=== PATIENT | male | born 1965 | race Caucasian/White ===

== ENCOUNTER 2023-04-02 15:54 | Inpatient (IN) | payer OTHER ==
[2023-04-02] VITALS (8 sets, daily range): BP systolic 143–179; BP diastolic 97–143; TEMP 98.3; O2SAT 97–98
[~2023-04-02] VITALS: Ht 182.9 cm; Wt 104.3 kg
[2023-04-02] MEDS ORDERED: AMIODARONE 150 MG/3 ML VIAL IV ONE ×2 (16:30→16:36)
[2023-04-02] MEDS: AMIODARONE 150 MG in IV D5W 100 ML IV ONE (16:56)
[2023-04-02 17:22] LABS: BASOPHILS % (AUTO) 0.2 % (0.0-2.0); EOSINOPHILS # (AUTO) 0.1 K/uL (0.0-0.7); EOSINOPHILS % (AUTO) 1.5 % (0.0-6.0); HEMATOCRIT 48 % (39-51); HEMOGLOBIN 15.9 g/dL (13.5-17.5); LYMPHOCYTES # (AUTO) 1.3 K/uL (0.8-4.8); LYMPHOCYTES % (AUTO) 18.3 % (20.0-44.0); MEAN CORPUSCULAR HEMOGLOBIN 28 PG (26.0-33.0); MEAN CORPUSCULAR HGB CONC 34 g/dl (31.0-36.0); MEAN CORPUSCULAR VOLUME 83 fL (80-96); MONOCYTES # (AUTO) 0.5 K/uL (0.1-1.30); MONOCYTES % (AUTO) 7.6 % (2.0-12.0); NEUTROPHILS % (AUTO) 72.4 % (43.0-81.0); PLATELET COUNT (AUTO) 216 K/uL (150-450); RED BLOOD CELL COUNT(AUTO) 5.73 MIL/uL (4.5-6.0); RED CELL DISTRIBUTION WIDTH 14.7 % (11.5-15.0); WHITE BLOOD COUNT (AUTO) 6.9 K/uL (4.3-11.0)
[2023-04-02] MEDS ORDERED: SACU1TAB4 PO (17:24)
[2023-04-02] MEDS ORDERED: APIX5TAB PO (17:24)
[2023-04-02] MEDS ORDERED: ATOR40TA PO (17:24)
[2023-04-02] MEDS ORDERED: FURO-145 PO (17:24)
[2023-04-02] MEDS ORDERED: DAPA10TA PO (17:24)
[2023-04-02] MEDS ORDERED: CARV25TA2 PO (17:24)
[2023-04-02] MEDS ORDERED: SPIR25TA6 PO (17:24)
[2023-04-02 17:35] LABS: CALCIUM, SERUM 8.8 mg/dL (8.5-10.1); CARBON DIOXIDE 24 mmol/L (21-32); CHLORIDE 105 mmol/L (98-107); CREATININE 1.3 mg/dL (0.6-1.3); GLUCOSE 90 mg/dL (74-106); POTASSIUM 3.7 mmol/L (3.5-5.1); SODIUM SERUM 140 mmol/L (136-145); UREA NITROGEN, BLOOD 14 mg/dL (7-18)
[2023-04-02] MEDS: AMIODARONE 450 MG in IV D5W 241 ML IV PRN ×2 (17:47→22:03)
[2023-04-02 17:48] LABS: ALANINE AMINOTRANSFERASE 21 U/L (12-78); ALBUMIN 3.9 g/dL (3.4-5.0); ALKALINE PHOSPHATASE 78 U/L (46-116); ASPARTATE AMINOTRANSFERASE 14 U/L (15-37); BILIRUBIN,DIRECT 0.3 mg/dL (0.0-0.2); BILIRUBIN,TOTAL 1.7 mg/dL (0.2-1.0); NT-PRO BNP 4345 pg/mL (0-125); TOTAL PROTEIN, SERUM 7.2 g/dL (6.4-8.2)
[2023-04-02] MEDS ORDERED: ALPRAZOLAM 0.5 MG TABLET PO PRN (19:00)
[2023-04-02] MEDS ORDERED: ONDANSETRON HCL/PF 4 MG/2 ML VIAL IVP PRN (19:00)
[2023-04-02] MEDS ORDERED: MAGNESIUM HYDROXIDE 30 ML UDC PO PRN (19:00)
[2023-04-02] MEDS ORDERED: Z GUARD REMEDY 4 OZ OINT TP PRN (19:00)
[2023-04-02] MEDS ORDERED: MORPHINE SULFATE INJ 2 MG/ML DISP.SYRIN IV PRN (19:00)
[2023-04-02] MEDS ORDERED: ACETAMINOPHEN 325 MG TABLET PO PRN (19:00)
[2023-04-02] MEDS ORDERED: MAG HYDROX/AL HYDROX/SIMETH 30 ML UDC PO PRN (19:00)
[2023-04-02] MEDS: AMIODARONE 150 MG/3 ML VIAL IV ONE ×2 (22:06→22:09)
[2023-04-03] VITALS (56 sets, daily range): BP systolic 124–198; BP diastolic 62–133; TEMP 97.8–98.3; O2SAT 96–100
[2023-04-03 00:11] LABS: CREATININE 1.1 mg/dL (0.6-1.3); POTASSIUM 3.8 mmol/L (3.5-5.1)
[2023-04-03 00:14] LABS: MAGNESIUM 2.2 mg/dL (1.8-2.4); PHOSPHORUS 4.5 mg/dL (2.5-4.9)
[2023-04-03 04:24] LABS: BASOPHILS % (AUTO) 0.2 % (0.0-2.0); EOSINOPHILS # (AUTO) 0.1 K/uL (0.0-0.7); EOSINOPHILS % (AUTO) 1.4 % (0.0-6.0); HEMATOCRIT 45 % (39-51); HEMOGLOBIN 14.8 g/dL (13.5-17.5); LYMPHOCYTES # (AUTO) 1.5 K/uL (0.8-4.8); LYMPHOCYTES % (AUTO) 19.8 % (20.0-44.0); MEAN CORPUSCULAR HEMOGLOBIN 28 PG (26.0-33.0); MEAN CORPUSCULAR HGB CONC 33 g/dl (31.0-36.0); MEAN CORPUSCULAR VOLUME 83 fL (80-96); MONOCYTES # (AUTO) 0.6 K/uL (0.1-1.30); MONOCYTES % (AUTO) 7.2 % (2.0-12.0); NEUTROPHILS # (AUTO) 5.6 K/uL (1.8-8.9); NEUTROPHILS % (AUTO) 71.4 % (43.0-81.0); PLATELET COUNT (AUTO) 181 K/uL (150-450); RED BLOOD CELL COUNT(AUTO) 5.34 MIL/uL (4.5-6.0); RED CELL DISTRIBUTION WIDTH 15.2 % (11.5-15.0); WHITE BLOOD COUNT (AUTO) 7.8 K/uL (4.3-11.0)
[2023-04-03 04:42] LABS: CALCIUM, SERUM 8.7 mg/dL (8.5-10.1); CREATININE 1.2 mg/dL (0.6-1.3); MAGNESIUM 2.2 mg/dL (1.8-2.4); PHOSPHORUS 4.7 mg/dL (2.5-4.9); POTASSIUM 3.5 mmol/L (3.5-5.1)
[2023-04-03 04:49] LABS: THYROID STIMULATING HORMONE 2.261 uIU/mL (0.358-3.74)
[2023-04-03] MEDS: hydrALAZINE HCL IV 20 MG VIAL IV PRN (05:18)
[2023-04-03 05:21] LABS: INR 1.25 (0.91-1.10); PROTHROMBIN TIME 13.1 SECS (9.2-11.1)
[2023-04-03] MEDS ORDERED: ANESTHESIA TRAY IN PYXIS 1 EA TRAY MC ONE (06:52)
[2023-04-03] MEDS ORDERED: diphenhydrAMINE HCL 50 MG/ML VIAL IV PRN (07:30)
[2023-04-03] MEDS: diphenhydrAMINE HCL 50 MG/ML VIAL IV ONE (08:13)
[2023-04-03] MEDS: PANTOPRAZOLE 40 MG TABLET.DR PO SCH (08:13)
[2023-04-03] MEDS: SACUBITRIL/VALSARTAN 1 EACH TABLET PO SCH (08:20)
[2023-04-03] MEDS: ATORVASTATIN 40 MG TABLET PO SCH (08:20)
[2023-04-03] MEDS: SPIRONOLACTONE 25 MG TABLET PO SCH (08:20)
[2023-04-03] MEDS: DAPAGLIFLOZIN PROPANEDIOL 5 MG TABLET PO SCH (08:20)
[2023-04-03] MEDS: CARVEDILOL 12.5 MG TABLET PO SCH (08:21)
[2023-04-03] MEDS: FUROSEMIDE 20 MG TABLET PO SCH (09:46)
[2023-04-03] MEDS: APIXABAN 5 MG TABLET PO SCH (09:48)
[2023-04-03] MEDS ORDERED: CT SWABBABLE VALVE TRANS SET 1 EA INFUS.SET MC ONE (10:24)
[2023-04-03] MEDS ORDERED: IV NS 0.9% 250 ML IV ONE (10:24)
[2023-04-03] MEDS ORDERED: IOHEXOL-350 100 ML VIAL IV ONE (10:24)
[2023-04-03] MEDS ORDERED: NITROGLYCERIN 0.4 MG/TAB BOTTLE ONE (10:25)
[2023-04-03] MEDS ORDERED: METOPROLOL TARTRATE INJ 5 MG/5 ML AMPUL ONE (10:26)
[2023-04-03] MEDS ORDERED: METOPROLOL TARTRATE INJ 5 MG/5 ML AMPUL IVP PRN (10:30)
[2023-04-03] MEDS: NITROGLYCERIN 0.4 MG/TAB BOTTLE SL ONE (10:43)
[2023-04-04] VITALS: BP 152/86; TEMP 98.5; O2SAT 100
[2023-04-04 04:00] VITALS: BP 160/92; TEMP 98.5; O2SAT 98
[2023-04-04] MEDS: AMIODARONE 450 MG in IV D5W 241 ML IV PRN (05:24)
[2023-04-04 08:00] VITALS: BP 149/90; TEMP 98.7; O2SAT 98
[2023-04-04 12:00] VITALS: BP 149/90; TEMP 98.8; O2SAT 98
[2023-04-04] MEDS: AMIODARONE HCL 200 MG TABLET PO SCH (12:53)
[2023-04-04 16:00] VITALS: BP 156/72; TEMP 98.7; O2SAT 98
[2023-04-04 16:53] VITALS: BP 155/85
[2023-04-04] MEDS ORDERED: AMIO200T7 PO (16:54)
== END 2023-04-04 18:39 | disposition home or self-care (01) | DRG 201 ==
LOC: ER 15:54 → ICU 20:15 → TELE-TD 04-03 18:38
PROVIDERS: ADMIT Nurse Practitioner Acute Care; ATTEND Internal Medicine
PROC: 5A2204Z Restoration of Cardiac Rhythm, Single (ICD-10-PCS; principal; 2023-04-03)
DX: I48.0 Paroxysmal atrial fibrillation (principal); I50.43 Acute on chronic combined systolic (congestive) and diastolic (congestive) heart failure; I42.0 Dilated cardiomyopathy; I11.0 Hypertensive heart disease with heart failure; E66.9 Obesity, unspecified; E78.5 Hyperlipidemia, unspecified; Z86.73 Personal history of transient ischemic attack (TIA), and cerebral infarction without residual deficits; E11.9 Type 2 diabetes mellitus without complications; Z68.31 Body mass index [BMI] 31.0-31.9, adult; Z79.01 Long term (current) use of anticoagulants
CPT/HCPCS: 36415; 71045-TC; 75574; 80048-TC; 80061-TC; 80076-TC; 83735-TC; 83880; 84100-TC; 84443-TC; 84484-TC; 85025-TC; 85610-TC; 93307-TC; 93312-TC; A4223; G0378; J0282; J0360; J0461; J1200; J2704; J3490; J7050; J7060; Q9967